=== PATIENT | male | born 1995 | race African-American/Black ===

== ENCOUNTER 2017-03-26 08:06 | Emergency (ER) | payer OTHER | END 2017-03-26 08:37 | disposition home or self-care (01) | LOC: NAV ERS 08:06 | DX: R25.2 Cramp and spasm (principal); F17.210 Nicotine dependence, cigarettes, uncomplicated | CPT/HCPCS: 99283 ==

== ENCOUNTER 2017-07-16 21:38 | Emergency (ER) | payer OTHER ==
[2017-07-16] MEDS ORDERED: Fluorescein Opthalmic Strip ONE (21:56)
== END 2017-07-16 22:22 | disposition home or self-care (01) ==
LOC: NAV ERS 21:38
DX: T15.11XA Foreign body in conjunctival sac, right eye, initial encounter (principal); F17.210 Nicotine dependence, cigarettes, uncomplicated
CPT/HCPCS: 65220

== ENCOUNTER 2018-03-18 18:19 | Emergency (ER) | payer BC, OTHER ==
[2018-03-18] MEDS ORDERED: Lidocaine 1% (PF) 30 ML VIAL ONE (18:31)
[2018-03-18] MEDS ORDERED: Adacel (T-DAP) 0.5 ML SYRINGE ONE (18:38)
[2018-03-18] MEDS ORDERED: Bacitracin Zinc 1 Packet ONE (19:01)
== END 2018-03-18 19:20 | disposition home or self-care (01) ==
LOC: NAV ERS 18:19
DX: S01.111A Laceration without foreign body of right eyelid and periocular area, initial encounter (principal); F17.210 Nicotine dependence, cigarettes, uncomplicated; Z23 Encounter for immunization; X95.9XXA Assault by unspecified firearm discharge, initial encounter
CPT/HCPCS: 12011; 90715; J2001

== ENCOUNTER 2018-03-25 19:03 | Emergency (ER) | payer BC | END 2018-03-25 19:18 | disposition home or self-care (01) | LOC: NAV ERS 19:03 | DX: S01.111D Laceration without foreign body of right eyelid and periocular area, subsequent encounter (principal); F17.210 Nicotine dependence, cigarettes, uncomplicated; Z71.6 Tobacco abuse counseling; X58.XXXD Exposure to other specified factors, subsequent encounter | CPT/HCPCS: 99406 ==

== ENCOUNTER 2018-06-03 19:00 | Emergency (ER) | payer BC ==
[2018-06-03] MEDS ORDERED: Ibuprofen 800 MG TAB ONE (19:45)
== END 2018-06-03 19:50 | disposition home or self-care (01) ==
LOC: NAV ERS 19:00
DX: K02.9 Dental caries, unspecified (principal); H65.91 Unspecified nonsuppurative otitis media, right ear; F17.210 Nicotine dependence, cigarettes, uncomplicated
CPT/HCPCS: 99283

== ENCOUNTER 2018-06-18 05:06 | Emergency (ER) | payer BC | END 2018-06-18 06:14 | disposition home or self-care (01) | LOC: NAV ERS 05:06 | DX: K02.9 Dental caries, unspecified (principal); F17.210 Nicotine dependence, cigarettes, uncomplicated | CPT/HCPCS: 99281 ==